=== PATIENT | male | born 1965 | race Two or more races ===

== ENCOUNTER → 2025-01-28 | Outpatient (CLI) | payer MEDICAID, SELFPAY ==
--- NOTE | 2025-01-28 09:15 | XR_ITS ---
Examination: Abdomen sonogram, complete Date and time of exam: January 28, 2025, 0914 hours INDICATIONS: Elevated liver function test on outside laboratory examination beginning 3 months ago. Technique: Multiple real-time grayscale transabdominal sonographic images of the abdomen have been obtained. Findings: Normal gallbladder Normal common bile duct 0.3 cm Pancreatic head 2.5 cm Aorta not enlarged Liver 14.2 cm fatty infiltration Normal hepatopetal portal venous flow Patent IVC Right kidney 10.3 cm renal cortex 2.5 cm Left kidney 11.5 cm renal cortex 1.8 cm 16 mm left renal cyst Spleen 10.3 cm IMPRESSION: Normal gallbladder Normal common bile duct
== END | disposition home or self-care (01) ==
PROVIDERS: PCP Nurse Practitioner Family; Referring Provider Nurse Practitioner Family; Visit Provider Nurse Practitioner Family
DX: R74.01 Elevation of levels of liver transaminase levels (principal)
CPT/HCPCS: 76700